=== PATIENT | male | born 2000 | race Caucasian/White ===

== ENCOUNTER 2020-11-26 11:42 | Emergency (ER) | payer OTHER, SELFPAY ==
[2020-11-26 12:03] VITALS: BP 144/77; PULSE 66; RESP 16; TEMP 36.6; O2SAT 100
[2020-11-26] MEDS: LIDOCAINE, EPINEPHRINE, TETRACAINE VISCOUS SOLN 3 ML TOPICAL (13:15)
--- NOTE | 2020-11-26 13:54 | ED.GENADULT ---
HPI - General Adult General Chief complaint: Wound/Laceration Stated complaint: L INDEX FINGER LAC Time Seen by Provider: 11/26/20 12:07 Source: patient and RN notes reviewed Mode of arrival: ambulatory Limitations: no limitations History of Present Illness HPI narrative: Patient is a 19-year-old male who presents with laceration left index finger that occurred just prior to arrival while using a razor patient notes tetanus is up-to-date notes mild aching pain worse with activity and movement denies any other complaints presents in no distress has not taken anything for his symptoms Related Data Allergies Allergy/AdvReac Type Severity Reaction Status Date / Time No Known Allergies Allergy Unverified 05/06/15 19:58 Review of Systems Review of Systems: All systems reviewed & are unremarkable except as noted in HPI and below PMFSH Social History Social History (Updated 11/26/20 @ 13:55 by Kal Mayorga PA-C) Tobacco type: e-cigarettes/vaping Exam Narrative: Exam Narrative: GENERAL: Well-appearing, well-nourished, and in no acute distress. HEAD: Normocephalic, atraumatic. EYES: PERRLA and EOMI. ENT: Nares clear, no rhinorrhea or epistaxis. Mucous membranes moist. EXTREMITIES: Normal range of motion. No edema. SKIN: Warm, dry, no rash. 1-1/2 cm flap laceration mid phalanx left index finger NEURO: No focal deficits. Alert and oriented x3. Neurovascularly intact PSYCH: Normal mood and affect. Course Course Emergency Course: Patient had closure of the wound in the emergency department Vital Signs Vital signs: Vital Signs Temperature 97.9 F 11/26/20 12:03 Pulse Rate 66 11/26/20 12:03 Respiratory Rate 16 11/26/20 12:03 Blood Pressure 144/77 H 11/26/20 12:03 Pulse Oximetry 100 11/26/20 12:03 Temperature 97.9 F 11/26/20 12:03 Pulse Rate 66 11/26/20 12:03 Respiratory Rate 16 11/26/20 12:03 Blood Pressure 144/77 H 11/26/20 12:03 Pulse Oximetry 100 11/26/20 12:03 Procedures Laceration Laceration 1: Date: 11/26/20 Time: 13:56 Site: upper extremity Side (If applicable): left Size (cm): 1.5 Description: flap Depth: simple, single layer Local Anesthetic: lidocaine 1% and other anesthetic Pre-repair: wound explored, irrigated and irrigated extensively ====== Skin Level ====== Skin layer closed with: nylon Size (cm): 5-0 Number of sutures: 7 ====== Subcutaneous Layer ====== ====== Muscle Layer ====== ====== Tendon Layer ====== Dressing: Nonadhesive antibiotic ointment 4 x 4 and Coban placed post procedure Medical Decision Making MDM Narrative Medical decision making narrative: Patients injury or pain is consistent with musculoskeletal etiology. No signs of neurological or vascular compromise on exam. Compartments and tisues are soft without signs of compartment syndrome. Pain is felt appropriate for further evaluation on an outpatient basis. Vital Signs Vital Signs: Vital Signs Temperature 97.9 F 11/26/20 12:03 Pulse Rate 66 11/26/20 12:03 Respiratory Rate 16 11/26/20 12:03 Blood Pressure 144/77 H 11/26/20 12:03 Pulse Oximetry 100 11/26/20 12:03 Temperature 97.9 F 11/26/20 12:03 Pulse Rate 66 11/26/20 12:03 Respiratory Rate 16 11/26/20 12:03 Blood Pressure 144/77 H 11/26/20 12:03 Pulse Oximetry 100 11/26/20 12:03 Discharge Plan Discharge Clinical Impression: Laceration Patient Disposition: Home, Self-Care Condition: Stable Instructions: Antibiotic Form, Laceration (ED) Additional Instructions: Keep wound clean and dry. Do not soak, take baths, or swim until wound is completely healed. If any signs of infection such as redness, swelling, increasing pain, drainage of purulent discharge, streaks up your extremity develop, seek medical attention immediately. Followup with your primary care provider in [7] days for
[2020-11-26 13:59] VITALS: BP 126/72; PULSE 65; RESP 12; O2SAT 100
== END 2020-11-26 14:07 | disposition home or self-care (01) ==
PROVIDERS: Emergency Provider Emergency Medicine
DX: S61.211A Laceration without foreign body of left index finger without damage to nail, initial encounter (principal); W26.8XXA Contact with other sharp object(s), not elsewhere classified, initial encounter
CPT/HCPCS: 12001; 99282

== ENCOUNTER 2024-09-27 01:28 | Emergency (ER) | payer OTHER, SELFPAY ==
--- NOTE | ~2024-09-27 | CT_ITS ---
Non-contrast CT scan of the Abdomen and Pelvis Clinical indication: Left flank pain Technique: 2.5 mm axial scans were obtained through the abdomen and pelvis without intravenous or or al contrast. Dose reduction technique was used on this scan by utilizing automated exposure control a nd iterative reconstruction technique. The dose-length product (DLP) was 560.01 mGy-cm. Findings: Images through the lung bases reveal no abnormalities. 5 mm round stone present in the distal left ureter (axial image 174), with mild left hydroureteroneph rosis to this level. No right renal or right ureteral stone. No right hydronephrosis. The liver, spleen, pancreas, gallbladder, and adrenals appear normal. There is no aortic aneurysm. There is no evidence of bowel obstruction. Images through the pelvis were performed. There is no evidence of ascites or lymphadenopathy. Urinary bladder unremarkable. No pelvic mass seen. Impression: 5 mm distal left ureteral stone with mild left hydroureteronephrosis to this level. Reviewed, dictated and finalized at [facility]. Impression: 5 mm distal left ureteral stone with mild left hydroureteronephrosis to this le jenn.
--- OUTSIDE RECORDS SUMMARY | 2024-09-27 01:30 | XMS_ITS | Clinical Summary ---
Author Organization [facility] Address [address] [place] [address] Care Team Providers Care Education Finance Processor Name Role Phone Unavailable Primary Care Provider Unavailabl e Source Comments [facility],non-owned Affiliates and Associated Physician Practices is amultiple site organization consisting of ambulatory clinics and hospital sitesin [place], [place], [place] and [place]. This disclosure is being madepursuant to the Care Everywhere program and may not contain all information available regarding this patient. Last updated 18.[facility] Allergies No known active allergies Medications * Be aware that medications may not be up to date on this document. Alwaysverify current medications with the patient. No known medications Family History Medical History Relation Name Comments Diabetes - Type 2 Father Relation Name Status Comments Father Alive Mother Alive Social History Tobacco Use Types Packs/Day Years Used Date Smoking Tobacco: Every Day Smokeless Tobacco: Never Comments:vapor Sex and Gender Information Value Date Recorded Sex Assigned at Not on file Legal Sex Male 10:24 AM CDT Gender Identity Not on file Sexual Orientation Not on file Last Filed Vital Signs Vital Sign Reading Time Taken Comments Blood Pressure 122/78 11/01/2018 10:56 AM CDT Pulse 61 11/01/2018 10:56 AM CDT Temperature 37.3 C (99.1 F) 11/01/2018 10:56 AM CDT Respiratory Rate 16 11/01/2018 10:56 AM CDT Oxygen Saturation 98% 11/01/2018 10:56 AM CDT Inhaled Oxygen Concentration - - Weight 106.6 kg (235 lb) 11/01/2018 10:56 AM CDT Height 182.9 cm (6') 11/01/2018 10:56 AM CDT Body Mass Index 31.87 11/01/2018 10:56 AM CDT Plan of Treatment Health Maintenance Due Date Last Done Comments HIV SCREENING 2013 HPV VACCINE (1 - Male 3-dose series) 2013 HEPATITIS C SCREENING 12/03/2016 DTAP/TDAP/TD VACCINES (1 - Tdap) 2017 HEPATITIS B VACCINE (1 of 3 - 19+ 3-dose series) 2017 COVID-19 VACCINE (1 - 2023-2 5 season) 2024 DEPRESSION SCREENING 05/09/2024 INFLUENZA VACCINE (Season Ended) 2025 ZOSTER VACCINE (1 of 2) 2048 HIB VACCINE Aged Out No longer eligi ble based on patient's age to complete this topic MENINGOCOCCAL (Group B) VACC INE SHARED DECISION-MAKING Aged Out No longer eligibl e based on patient's age to complete this topic MENINGOCOCCAL GROUPS A/C/Y/W VACCINE Aged Out No longer eligible b ased on patient's age to complete this topic PNEUMOCOCCAL VACCINE Aged Out No long er eligible based on patient's age to complete this topic Insurance [employer]
[2024-09-27 01:34] VITALS: BP 142/88; PULSE 60; RESP 19; TEMP 36.4; O2SAT 100
[2024-09-27 02:35] VITALS: BP 135/77; PULSE 84; RESP 21; O2SAT 100
[2024-09-27 02:38] LABS: Basophils Absolute Auto 0.1 K/mm3 (0.0-0.1); Basophils Percent Auto 0.5 % (0.2-1.2); Eosinophils Absolute Auto 0.1 K/mm3 (0-0.3); Hemoglobin 13.7 g/dL (14.0-18.0); Immature Granulocyte Absolute 0.04 K/mm3 (0.00-0.031); Immature Granulocyte Percent A 0.4 % (0-0.5); Lymphocytes Absolute Auto 4.08 K/mm3 (0.9-3.2); Lymphocytes Percent Auto 36.8 % (18.3-44.2); Mean Corpuscular HGB Conc 33.4 g/dl (32-36); Mean Corpuscular Hemoglobin 29.2 pg (26-34); Mean Corpuscular Volume 87.4 fl (80-100); Mean Platelet Volume 9.1 fl (7.4-10.4); Monocytes Absolute Auto 0.8 K/mm3 (0.1-0.6); Monocytes Percent Auto 7.3 % (2.6-8.5); Platelet Count Result 271 k/mm3 (150-375); Red Blood Count 4.69 M/mm3 (4.6-6.20); Red Cell Distribution Width 13.7 % (11.5-14.5); White Blood Count 11.1 K/mm3 (4.5-10.0)
--- NOTE | 2024-09-27 02:42 | ED_ITS ---
HPI - General Adult General Chief complaint: Back Pain/Injury Stated complaint: L flank pain Time Seen by Provider: 09/27/24 02:23 History of Present Illness HPI narrative: 23-year-old male present to the emergency department for evaluation for left flank pain that started approximately 2 hours ago. Patient states he left flank pain radiates around to his left lower quadrant. Patient states that it is a sharp and burning pain. Patient states he has urinated but did not notice any blood in his urine. Patient denies any prior history of kidney stones. Patient is not on any blood thinners. Patient is uncomfortable appearing at time of evaluation. Related Data Allergies Allergy/AdvReac Type Severity Reaction Status Date / Time No Known Allergies Allergy Verified 09/27/24 01:28 Review of Systems 2 Review of Systems: All systems reviewed & are unremarkable except as noted in HPI and [facility] Social History Social History (Updated 11/26/20 @ 13:55 by Kal Mayorga, JUDY) Tobacco type: e-cigarettes/vaping Exam 2 Narrative: APPEARANCE: Uncomfortable appearing HEAD: normocephalic, atraumatic. EYES: PERRLA/EOMI, conjunctivae clear. NOSE: Normal no drainage EARS:TMS clear with good light reflex. THROAT: Pharynx clear, no exudate. NECK: Supple. No adenopathy, no masses. RESPIRATORY: Airway patent, respirations nonlabored. Clear to auscultation bilaterally, no rales, rhonchi, wheezing. CARDIOVASCULAR: Regular rate and rhythm without murmurs rubs or gallops. ABDOMINAL: Left CVA tenderness to palpation MUSCULOSKELETAL: Moves all extremities. Strength/ROM intact, No edema, No calf tenderness. NEURO: Alert. Cranial nerves II through XII intact. Good gait. Good coordination SKIN: Warm, dry. Normal Color Course Vital Signs Vital signs: Vital Signs Temperature 97.6 F 09/27/24 01:34 Pulse Rate 60 09/27/24 01:34 Respiratory Rate 19 09/27/24 01:34 Blood Pressure 142/88 H 09/27/24 01:34 Pulse Oximetry 100 09/27/24 01:34 Oxygen Delivery Room Air 09/27/24 01:34 Temperature 97.6 F 09/27/24 01:34 Pulse Rate 88 09/27/24 06:55 Respiratory Rate 14 09/27/24 06:55 Blood Pressure 136/80 09/27/24 06:55 Pulse Oximetry 99 09/27/24 06:55 Oxygen Delivery Room Air 09/27/24 01:34 Medical Decision Making MDM Narrative Medical decision making narrative: 23-year-old male present to the emergency department for evaluation for left flank pain. Patient is currently afebrile but does have a leukocytosis of 11.1 hemoglobin of 13.7. Patient's INR is 1.0. Patient has no acute abnormalities on the CMP with normal kidney function. UA was positive for blood but negative for signs of infection. CT abdomen pelvis does show evidence of a 5 mm ureteral calculi at the left UVJ. Patient had been treated with 1 mg of IV Dilaudid was also treated with additional IV Toradol along with Flomax and patient did feel improved with treatment. Patient was provided Flomax, [place], Zofran for symptom control at home and patient will be provided outpatient follow-up with Urology. Patient family were updated on the results of the workup they are comfortable the plan. All questions concerns and patient was well-appearing at time of discharge. Differential Diagnosis Differential Diagnosis: UTI, kidney stone, ureteral calculi, renal colic Vital Signs Vital Signs: Vital Signs Temperature 97.6 F 09/27/24 01:34 Pulse Rate 60 09/27/24 01:34 Respiratory Rate 19 09/27/24 01:34 Blood Pressure 142/88 H 09/27/24 01:34 Pulse Oximetry 100 09/27/24 01:34 Oxygen Delivery Room Air 09/27/24 01:34 Temperature 97.6 F 09/27/24 01:34 Pulse Rate 88 09/27/24 06:55 Respiratory Rate 14 09/27/24 06:55 Blood Pressure 136/80 09/27/24 06:55 Pulse Oximetry 99 09/27/24 06:55 Oxygen Delivery Room Air 09/27/24 01:34 Lab Data Lab results reviewed: Yes I reviewed the patient's lab results. 09/27/24 02:29 09/27/24 02:29 Labs: Lab Results 09/27/24 09/27/24 Range/Units 02:27 02:29 WBC 11.1 H (4.5-10.0) K/mm3 RBC 4.69 (4.6-6.20) M/mm3 Hgb 13.7 L (14.0-18.0) g/dL Hct 41.0 L (42.0-52.0) % MCV 87.4 (80-100) fl MCH 29.2 (26-34) pg MCHC 33.4 (32-36) g/dl RDW 13.7 (11.5-14.5) % Plt Count 271 (150-375) k/mm3 MPV 9.1 (7.4-10.4) fl Immature Gran % (Auto) 0.4 (0-0.5) % Neut % (Auto) 54.0 (45.5-73.1) % Lymph % (Auto) 36.8 (18.3-44.2) % [place] % (Auto) 7.3 (2.6-8.5) % Eos % (Auto) 1.0 (0-4.4) % Baso % (Auto) 0.5 (0.2-1.2) % Lymph # (Auto) 4.08 H (0.9-3.2) K/mm3 [place] # (Auto) 0.8 H (0.1-0.6) K/mm3 Eos # (Auto) 0.1 (0-0.3) K/mm3 Baso # (Auto) 0.1 (0.0-0.1) K/mm3 Abs Immat Gran (auto) 0.04 H (0.00-0.031) K/mm3 Absolute Neuts (auto) 6.0 (1.3-6.7) K/mm3 Absolute Nucleated RBC 0.000 (0.0-0.012) K/mm3 Nucleated RBC % 0.0 (0.0-0.2) % PT 14.0 (11.1-14.7) Seconds INR 1.0 APTT 24.9 (22.3-36.8) Seconds Sodium 141 (137-145) mmol/L Potassium 3.6 (3.4-5.0) mmol/L Chloride 108 H (98-107) mmol/L Carbon Dioxide 22 (22-30) mmol/L Anion Gap 11 (4-12) mmol/L BUN 15 (9-20) mg/dL Creatinine 0.84 (0.7-1.3) mg/dL Estim Creat Clear Calc 129 ml/min Estimated GFR > 60 (59 - ) Glucose 130 H (65-110) mg/dL Calcium 8.8 (8.4-10.2) mg/dL Total Bilirubin 0.3 (0.2-1.3) mg/dL AST 33 (17-59) U/L ALT 26 (6-50) U/L Alkaline Phosphatase 90 (38-126) U/L Total Protein 7.0 (6.3-8.2) g/dL Albumin 4.5 (3.5-5.1) g/dL Urine Color Yellow (Yellow) Urine Appearance Clear (Clear) Urine pH 5.5 (5.0-9.0) Ur Specific [place] 1.027 (1.001-1.035) Urine Protein Negative (Negative) mg/dL Urine Glucose (UA) Negative (Negative) mg/dL Urine Ketones Negative (Negative) mg/dL Ur Blood (Man) 1+ H (Negative) Urine Nitrate Negative (Negative) Urine Bilirubin Negative (Negative) Urine Urobilinogen 0.2 (<2.0) mg/dL Add Ur Microanalysis Reviewed Leukocyte Esterase Rfl Negative (Negative) JUAN/UL Urine RBC 11-20 H (0-2) /hpf Urine WBC 0-5 (0-3) /hpf Ur Squamous Epith Cells None seen (Few) /hpf Urine Bacteria None seen /hpf Urine Casts 0-2 Imaging Data Radiologist's impression: Overnight read CT abdomen pelvis Impression: 4 mm obstructing calculus of the left UVJ with mild hydronephrosis. Discharge Plan Discharge Clinical Impression: Calculi, ureter Patient Disposition: Home Condition: Stable Instructions: Kidney Stones (ED), Renal Colic (ED), How to Strain Your Urine (ED) Additional Instructions: Ibuprofen for pain control. [place] as needed for additional pain control. Flomax as directed to help you pass the kidney stone. Zofran as needed for nausea. Strain your urine as instructed. Have close follow-up with Urology. If you have any worsening symptoms then please call or return to the emergency department. Patient Language: [place] Prescriptions: New hydrocodone-acetaminophen 5-325 mg tablet 1 tablet PO Q12H PRN (Reason: pain) Qty: 14 0RF tamsulosin [Flomax] 0.4 mg capsule 0.4 mg PO DAILY 14 Days Qty: 14 0RF ondansetron 4 mg tablet,disintegrating 4 mg PO Q8H PRN (Reason: nausea and vomiting) Qty: 14 0RF Follow-up/Referrals: Quentin Hayes MD [Physician] - UNKNOWN,DOCTOR [Primary Care Provider] - Stand Alone Forms: Work/School Release IP
[2024-09-27 02:46] LABS: Alanine Aminotransferase 26 U/L (6-50); Albumin Level 4.5 g/dL (3.5-5.1); Alkaline Phosphatase 90 U/L (38-126); Anion Gap 11 mmol/L (4-12); Aspartate Amino Transferase 33 U/L (17-59); Bilirubin,Total 0.3 mg/dL (0.2-1.3); Blood Urea Nitrogen 15 mg/dL (9-20); Calcium 8.8 mg/dL (8.4-10.2); Carbon Dioxide 22 mmol/L (22-30); Chloride 108 mmol/L (98-107); Estimated CRCL calculation 129 ml/min; Estimated Glomerular Filt Rate > 60; Glucose 130 mg/dL (65-110); Potassium 3.6 mmol/L (3.4-5.0); Sodium 141 mmol/L (137-145)
[2024-09-27] MEDS: ONDANSETRON INJ 4 MG/2 ML VIAL IV PUSH (02:49)
[2024-09-27] MEDS: HYDROmorphone HCL INJ (*CRX) 2 MG/ML VIAL 1 MG IV PUSH (02:49)
[2024-09-27 02:50] LABS: Partial Thromboplastin Time 24.9 Seconds (22.3-36.8)
[2024-09-27 02:51] LABS: Add Urine Microscopic? YES; Appearance Urine Clear (Clear); Bacteria Urine None Seen /hpf; Bilirubin Urine Negative (Negative); Blood Urine 1+ (Negative); Color Urine Yellow (Yellow); Glucose Urine UA Negative (Negative); Ketones Urine Negative (Negative); Leukocyte Esterase Ur Negative LEU/UL (Negative); Need Manual Microscopic Reviewed; Nitrate Urine Negative (Negative); Non Pathogenic Casts 0-2; Protein Urine Negative (Negative); Specific Grav Ur 1.027 (1.001-1.035); Squamous Epithelial Cell Urine None Seen /hpf (Few); Urobilinogen Urine 0.2 mg/dL (<2.0); WBC Urine 0-5 /hpf (0-3); pH Urine 5.5 (5.0-9.0)
--- OUTSIDE RECORDS SUMMARY | 2024-09-27 02:54 | XMS_ITS | Clinical Summary ---
Author Organization [facility] Address [address] [place] [address] Care Team Providers Care Bottom Steep Tender Name Role Phone Unavailable Primary Care Provider Unavailabl e Source Comments [facility],non-owned Affiliates and Associated Physician Practices is amultiple site organization consisting of ambulatory clinics and hospital sitesin [place], [place], [place] and [place]. This disclosure is being madepursuant to the Care Everywhere program and may not contain all information available regarding this patient. Last updated 18.[facility] Allergies No known active allergies Medications * [...] patient's age to complete this topic Insurance [facility] [employer]
[2024-09-27] MEDS: TAMSULOSIN HCL 0.4 MG CAPSULE PO (03:46)
[2024-09-27 04:18] VITALS: BP 133/87; PULSE 95; RESP 25; O2SAT 100
[2024-09-27] MEDS: KETOROLAC 30 MG/ML VIAL (*BKC) IV PUSH (05:14)
[2024-09-27] MEDS: HYDROmorphone HCL INJ (*CRX) 2 MG/ML VIAL 0.5 MG IV PUSH (05:14)
[2024-09-27 05:54] VITALS: BP 120/72; PULSE 60; RESP 16; O2SAT 96
[2024-09-27 06:55] VITALS: BP 136/80; PULSE 88; RESP 14; O2SAT 99
== END 2024-09-27 06:57 | disposition home or self-care (01) ==
PROVIDERS: Emergency Provider Emergency Medicine
DX: N13.2 Hydronephrosis with renal and ureteral calculous obstruction (principal); F17.290 Nicotine dependence, other tobacco product, uncomplicated
CPT/HCPCS: 36415; 74176; 80053; 81001; 85025; 85610; 85730; 96374; 96375; 96376; 99284; A9270; J1171; J1885; J2405